=== PATIENT | female | born 1995 | race Caucasian/White ===

== ENCOUNTER 2017-02-25 21:02 | Emergency (ER) | payer OTHER ==
[~2017-02-25] VITALS: Ht 170.2 cm; Wt 60.2 kg
[2017-02-25 21:14] VITALS: Ht 170.2 cm; Wt 60.2 kg
[2017-02-25] MEDS ORDERED: ACETAMINOPHEN 500 MG TAB PO STA (21:41)
[2017-02-25] MEDS ORDERED: XYLOCAINE 1%/SOD BICARB 20 ML VIAL INFIL ONE (21:45)
[2017-02-25] MEDS ORDERED: BCPILLS PO (21:59)
[2017-02-25 22:36] VITALS: BP 117/69; PULSE 56; TEMP 36.8; O2SAT 99
--- NOTE | 2017-02-26 01:13 | EMERGENCY ROOM VISIT NOTE ---
ED Visit Note First contact with patient: 21:36 Chief Complaint: I cut my left hand. History of Present Illness: Ms. Mondragon is a 21-year-old white female who ambulates into the ED accompanied by female friend complaining of a left hand laceration in the webspace between the thumb and index finger. Patient reports just prior to coming to the hospital she was cutting sweet potatoes and accidentally cut her left hand. She reports she control bleeding prior to arrival at the hospital but did not wash the wound. Associated with her laceration she reports she is having a deep throbbing sensation in the area of her laceration. She rates her discomfort 6/10. Her pain is nonradiating. Her pain worsens with palpation. She has not identified any alleviating factors related to the pain. She has not taken medications for pain prior to arrival at the hospital. She denies any associated symptoms including weakness, numbness or tingling in the left thumb or index finger. Review of Systems: As noted above in history of present illness. Past Medical History: Multiple removal as a child. Current Medications: control. Allergies to Medications: Medical tape. Social History: Patient is currently a student services rep and feels safe in her home environment; she denies tobacco use and admits to alcohol use. Tetanus Immunization Status: Patient reports up-to-date. Physical Examination: Vital Signs: Date Time Temp Pulse Resp B/P (MAP) Pulse Ox O2 Delivery O2 Flow Rate FiO2 02/25/17 22:36 36.8 56 20 117/69 99 02/25/17 21:14 37.4 92 20 138/94 99 Room Air GENERAL: 21-year-old female in mild distress due to pain, nontoxic-appearing, afebrile and hemodynamically stable. Seth is very anxious. NEUROLOGICAL: Awake, alert and oriented to person, place and time. Answering questions appropriately and following commands. SKIN: Warm, dry and pink. Left Hand: Patient has a 2.6 cm full-thickness laceration in the webspace between the index finger and thumb. No active bleeding. LEFT HAND: Soft tissue injury as noted above. No gross bony deformity. Mild tenderness over her laceration but no tenderness throughout the thumb or index fingers. 5/5 muscle strength in flexion and extension of all MCP, PIP and DIP joints of the thumb and index finger. Throughout the fingers the skin was warm and pink and capillary refill is brisk. She was able to distinguish light sensations through all dermatomes. ED Course: Patient is assessed as noted above. Wound Repair: Complexity: Basic Verbal consent was obtained after the risks and benefits were explained. The skin was prepped with betadine and a sterile field set. Wound edges of the wound was anesthetized with 2.2 ml buffered 1% lidocaine. The wound was explored for foreign bodies and none found. Copious irrigation was performed using sterile saline. With direct pressure the bleeding subsided. Debridement was not performed. The wound edges were approximated using 5-0 Ethilon with 5 simple interrupted sutures. Hemostasis and excellent approximation was achieved. Antibacterial ointment and a sterile dressing applied. No complications and the patient tolerated the procedure well. Patient was educated about tonight's findings and instructed on her treatment plan; she verbalizes understanding and agreement with this plan. Clinical Impression: Laceration of the left hand. Disposition: Patient discharged home in stable condition; prior to departure he was reassessed and subjectively reported pain and symptom-free. Plan: Comfort measures, wound care, and signs of infection were discussed with the patient. Patient was encouraged to follow-up with [facility] or return to the ED for signs of infection and/or suture removal in 10-12 days.
== END 2017-02-25 22:37 | disposition home or self-care (01) ==
LOC: C.EDB 21:05 → C.EDD 22:37
DX: S61.412A Laceration without foreign body of left hand, initial encounter (principal); W45.8XXA Other foreign body or object entering through skin, initial encounter